=== PATIENT | female | born 1940 | race Caucasian/White ===

== ENCOUNTER 2016-05-15 10:06 | Outpatient (CLI) | payer MEDICARE | END 2016-05-15 10:07 | disposition home or self-care (01) | DX: Z12.31 Encounter for screening mammogram for malignant neoplasm of breast (principal) ==

== ENCOUNTER 2017-05-15 10:08 | Outpatient (CLI) | payer MEDICARE ==
--- NOTE | 2017-05-17 08:54 | Mammography Report ---
DATE OF SERVICE: 05/15/2017 DIGITAL BILATERAL SCREENING MAMMOGRAM: 05/15/2017 COMPARISON: Mammogram 05/15/2016. INDICATION: Screening mammography. TECHNIQUE: Bilateral CC and MLO breast views. FINDINGS: There are scattered fibroglandular densities. No dominant mass, architectural distortion, or concerning cluster of microcalcifications is seen. IMPRESSION: BIRADS category: 1, negative. RECOMMENDATION: Annual screening mammogram. STANDARD QUALIFYING STATEMENTS 1. This examination was reviewed with the aid of Computed-Aided Detection (CAD) . 2. A negative or benign imaging report should not delay biopsy if clinically suspicious findings are present. Consider surgical consultation if warranted. More than 5% of cancers are not identified by imaging. 3. Dense breasts may obscure an underlying neoplasm. TD: 05/16/2017 18:46 MTDLula
== END 2017-05-15 10:09 | disposition home or self-care (01) ==
LOC: DI.S 10:08
PROVIDERS: ATTEND Family Medicine
DX: Z12.31 Encounter for screening mammogram for malignant neoplasm of breast (principal)
CPT/HCPCS: 77067